=== PATIENT | male | born 1940 | race Caucasian/White ===

== ENCOUNTER 2016-05-12 15:34 | Inpatient (IN) | payer MEDICARE, BC ==
[~2016-05-12] VITALS: Ht 175.3 cm; Wt 102.2 kg
[~2016-05-12 15:34] MED LIST: ALEVE 220MG220 MG PO; AMOXICILLIN 8751 TAB PO; BACTRIM DS 8001 TAB PO; CALCIUM500 MG PO; CLINDAMYCIN150 MG PO; COUMADIN 1MG1 MG/TAB PO; FERROUS SU325 MG/TAB PO; FISH OIL1000 MG PO; FOLIC ACID PO; GLUCOSAMINE & C1 CA1 PO; MAGNESIUM250 M1 PO; MULTIPLE VITAMI1 CAP PO; NIACIN500 MG PO; TYLENOL 325MG325 MG PO; VANCOCIN HCL500 MG IV; VITAMIN C BUFF500 MG PO; VITAMIN C500 MG PO
[2016-07-21] VITALS (11 sets, daily range): BP systolic 120–141; BP diastolic 63–86; PULSE 69–91; TEMP 97.1–98
[2016-07-21] MEDS ORDERED: ALEVE 220MG220 MG PO (07:40)
[2016-07-22 00:42] VITALS: BP 119/68; PULSE 76; TEMP 98.2
[2016-07-22 04:42] VITALS: BP 124/67; PULSE 67; TEMP 97.9
[2016-07-22 07:37] VITALS: BP 118/55; PULSE 77; TEMP 98.6
[2016-07-22 08:17] LABS: HEMATOCRIT 40.2 % (42.0-52.0)
== END 2016-07-22 11:55 | disposition home or self-care (01) | DRG 470 ==
LOC: JCC 07-21 07:06
PROVIDERS: Orthopaedic Surgery
PROC: 0SRG0JZ Replacement of Left Ankle Joint with Synthetic Substitute, Open Approach (ICD-10-PCS; principal; 2016-07-21 09:30)
DX: M19.072 Primary osteoarthritis, left ankle and foot (principal); Z87.891 Personal history of nicotine dependence; M70.62 Trochanteric bursitis, left hip
CPT/HCPCS: A9284; C1713; C1776; J0690; J1100; J1885; J2250; J2405; J2704; J2795; J3010; J7120

== ENCOUNTER 2016-06-29 14:38 | Outpatient (RCR) | payer MEDICARE, BC ==
[2016-07-21] MEDS ORDERED: ALEVE 220MG220 MG PO (07:40)
== END 2016-08-08 08:53 | disposition home or self-care (01) ==
LOC: MKS.ESL.PT 14:38
DX: Z01.818 Encounter for other preprocedural examination (principal); M19.072 Primary osteoarthritis, left ankle and foot
CPT/HCPCS: G8978-GP; G8979-GP

== ENCOUNTER 2016-10-24 12:30 | Outpatient (RCR) | payer MEDICARE, BC | END 2016-11-03 | disposition home or self-care (01) | LOC: MKS.ESL.PT | DX: Z47.89 Encounter for other orthopedic aftercare (principal); M25.872 Other specified joint disorders, left ankle and foot | CPT/HCPCS: G8978-GP; G8979-GP ==

== ENCOUNTER → 2016-11-15 | Outpatient (CLI) | payer MEDICARE, BC | LOC: COL.RAD 07:46 | DX: M25.552 Pain in left hip (principal) | CPT/HCPCS: J3301; Q9967 ==

== ENCOUNTER 2016-11-21 12:30 | Outpatient (RCR) | payer MEDICARE, BC | END 2017-02-07 | LOC: MKS.ESL.PT | DX: Z47.1 Aftercare following joint replacement surgery (principal); Z96.662 Presence of left artificial ankle joint | CPT/HCPCS: G8979-GP; G8980-GP ==

== ENCOUNTER → 2018-01-16 | Outpatient (CLI) | payer MEDICARE, BC | LOC: COL.VAS 12:58 | DX: Z01.810 Encounter for preprocedural cardiovascular examination (principal) ==

== ENCOUNTER 2018-03-02 16:14 | Emergency (ER) | payer MEDICARE, BC ==
[~2018-03-02] VITALS: Ht 175.3 cm; Wt 100.0 kg
[2018-03-02 16:19] VITALS: TEMP 98.5
[2018-03-02 18:05] VITALS: BP 128/77; PULSE 89
== END 2018-03-02 18:05 | disposition home or self-care (01) ==
LOC: COL.ER 16:14
DX: T81.89XA Other complications of procedures, not elsewhere classified, initial encounter (principal); K21.9 Gastro-esophageal reflux disease without esophagitis; Z87.891 Personal history of nicotine dependence; Z98.890 Other specified postprocedural states

== ENCOUNTER 2018-03-04 09:06 | Emergency (ER) | payer MEDICARE, BC ==
[~2018-03-04] VITALS: Ht 175.3 cm; Wt 100.0 kg
[2018-03-04 11:24] VITALS: BP 132/81; PULSE 72; TEMP 96.8
== END 2018-03-04 11:25 | disposition home or self-care (01) ==
LOC: COL.ER 09:06
DX: Z48.811 Encounter for surgical aftercare following surgery on the nervous system (principal); E78.5 Hyperlipidemia, unspecified

== ENCOUNTER → 2018-04-18 | Outpatient (CLI) | payer MEDICARE, BC | LOC: COL.VAS 12:13 | DX: Z13.6 Encounter for screening for cardiovascular disorders (principal); M71.21 Synovial cyst of popliteal space [Baker], right knee ==

== ENCOUNTER → 2018-04-23 | Outpatient (CLI) | payer MEDICARE, BC | LOC: COL.RAD 06:35 | DX: M99.73 Connective tissue and disc stenosis of intervertebral foramina of lumbar region (principal); M47.817 Spondylosis without myelopathy or radiculopathy, lumbosacral region; M48.07 Spinal stenosis, lumbosacral region; Z98.890 Other specified postprocedural states | CPT/HCPCS: A9585 ==

== ENCOUNTER 2018-04-25 10:21 | Emergency (ER) | payer MEDICARE, BC ==
[~2018-04-25] VITALS: Ht 175.3 cm; Wt 100.0 kg
[2018-04-25 10:28] VITALS: TEMP 97.9
[2018-04-25 10:48] LABS: BASO % 0.7 % (0.0-2.0); EOS % 0.5 % (0-4.0); GRAN # 4.8 (1.4-6.5); HEMATOCRIT 43.4 % (42.0-52.0); HEMOGLOBIN 14.9 g/dl (13.5-18.0); LYMPH # 0.7 (1.2-3.4); LYMPH % 12.2 % (20.0-51.0); MEAN CELL VOLUME 95 fl (80.0-100.0); MEAN CORPUSCULAR HEMOGLOBIN 33 pg (27.0-31.0); MEAN CORPUSCULAR HGB CONC 34 g/dl (33.0-37.0); MEAN PLATELET VOLUME 10.1 fl (7.4-10.4); MONO # 0.3 (0.1-0.6); MONO % 5.4 % (1.7-9.3); PLATELET COUNT 208 K/mm3 (130-400); RED BLOOD COUNT 4.55 M/mm3 (4.20-5.60); REDCELL DISTRIBUTION WIDTH-CV 13.8 % (11.5-14.5)
[2018-04-25 10:53] LABS: INR 0.9 (0.8-3.0)
[2018-04-25 11:04] LABS: ANION GAP 1 mmol/L (7-16); BLOOD UREA NITROGEN 17 mg/dL (9-20); CALCIUM 9.5 mg/dL (8.4-10.2); CARBON DIOXIDE 32 mmol/L (22-30); CHLORIDE 105 mmol/L (98-107); CREATININE, serum 0.67 mg/dL (0.66-1.25); GLUCOSE 156 mg/dL (74-106); POTASSIUM 4.6 mmol/L (3.4-5.0); SODIUM 138 mmol/L (137-145)
[2018-04-25 11:12] LABS: C-REACTIVE PROTEIN < 0.5 mg/dL (0.0-0.9)
[2018-04-25 13:23] VITALS: BP 130/70; PULSE 70
== END 2018-04-25 13:29 | disposition home or self-care (01) ==
LOC: COL.ER 10:21
PROVIDERS: Emergency Medicine
DX: M54.10 Radiculopathy, site unspecified (principal); R60.0 Localized edema

== ENCOUNTER → 2018-06-07 | Outpatient (CLI) | payer MEDICARE, BC ==
[~2018-06-07] VITALS: Ht 175.3 cm; Wt 101.7 kg
[~2018-06-07] MED LIST changes: -CALCIUM500 MG PO; +NIACIN FLUSH F400 MG PO; -NIACIN500 MG PO; +OSCAL 500 TAB500 MG PO
[2018-06-07 09:06] VITALS: BP 148/86; PULSE 76
[2018-06-07 10:45] VITALS: BP 167/94; PULSE 86
[2018-06-07 10:50] VITALS: BP 161/94; PULSE 87; TEMP 97.4
[2018-06-07 11:15] VITALS: BP 143/83; PULSE 70
== END ==
LOC: COL.RAD 08:42
DX: M48.05 Spinal stenosis, thoracolumbar region (principal); Z98.890 Other specified postprocedural states; Z98.1 Arthrodesis status

== ENCOUNTER 2018-09-14 12:19 | Emergency (ER) | payer MEDICARE, BC ==
[~2018-09-14] VITALS: Ht 175.3 cm; Wt 100.0 kg
[2018-09-14 12:23] VITALS: BP 134/74; TEMP 98.6
[2018-09-14] MEDS ORDERED: NAPROSYN 2250 MG/TAB PO (12:39)
[2018-09-14] MEDS ORDERED: DOXYCYCLINE 10100 MG PO (13:03)
[2018-09-14] MEDS ORDERED: CEPHALEXIN500 M1 PO (13:03)
[2018-09-14 14:04] VITALS: PULSE 72
== END 2018-09-14 14:07 | disposition home or self-care (01) ==
LOC: COL.ER 12:19
DX: L02.413 Cutaneous abscess of right upper limb (principal); Z87.891 Personal history of nicotine dependence; Z98.890 Other specified postprocedural states; Z96.652 Presence of left artificial knee joint

== ENCOUNTER 2019-03-12 13:22 | Emergency (ER) | payer MEDICARE, BC ==
[~2019-03-12] VITALS: Ht 175.3 cm; Wt 103.2 kg
[~2019-03-12 13:22] MED LIST changes: +CEPHALEXIN500 M1 PO; +DOXYCYCLINE 10100 MG PO; +NAPROSYN 2250 MG/TAB PO
[2019-03-12 13:27] VITALS: BP 159/83; TEMP 98.6
[2019-03-12] MEDS ORDERED: PAMELOR 10MG10 MG PO (13:39)
[2019-03-12 14:21] VITALS: PULSE 88
== END 2019-03-12 14:22 | disposition home or self-care (01) ==
LOC: COL.ER 13:22
DX: L89.329 Pressure ulcer of left buttock, unspecified stage (principal)

== ENCOUNTER → 2020-07-23 | Outpatient (CLI) | payer MEDICARE, BC ==
[~2020-07-23] MED LIST changes: +PAMELOR 10MG10 MG PO
== END ==
LOC: ZCOL.LAB 14:12
DX: M71.021 Abscess of bursa, right elbow (principal)

== ENCOUNTER → 2021-07-16 | Outpatient (CLI) | payer MEDICARE, BC | LOC: COL.RAD 09:01 | DX: M54.17 Radiculopathy, lumbosacral region (principal); R74.8 Abnormal levels of other serum enzymes | CPT/HCPCS: A9503 ==